=== PATIENT | male | born 1990 | race Caucasian/White ===

== ENCOUNTER 2025-05-04 19:00 | Observation (INO) ==
[2025-05-04 19:59] LABS: Basophils # (Auto) 0.03 K/mcL (0.00-0.30); Basophils % (Auto) 0.5 % (0.0-2.0); Eosinophils # (Auto) 0.05 K/mcL (0.00-0.70); Eosinophils % (Auto) 0.8 % (0.0-7.0); Hematocrit 40.5 % (40.1-51.0); Hemoglobin 13.7 g/dL (13.7-17.5); Lymphocytes # (Auto) 1.81 K/mcL (1.50-4.80); Lymphocytes % (Auto) 27.8 % (15.5-49.0); Mean Corpuscular HGB Conc 33.8 g/dL (31.0-36.0); Monocytes # (Auto) 0.55 K/mcL (0.10-0.90); Monocytes % (Auto) 8.4 % (1.0-12.0); Neutrophils % (Auto) 62.3 % (38.0-78.0); Platelet Count 325 K/mcL (140-440); RBC 4.35 M/mcL (4.63-6.08); WBC 6.5 K/mcL (4.5-11.0)
[2025-05-04 20:11] LABS: ALT/SGPT 27 U/L (<40); AST/SGOT 22 U/L (<40); Albumin 4.5 gm/dL (3.2-5.2); Albumin/Globulin Ratio 2.3 (1.0-2.3); Alkaline Phosphatase 77 U/L (39-117); Anion Gap 11.0 (8.0-16.0); Bilirubin,Total 0.5 mg/dL (0.1-1.0); Blood Urea Nitrogen 15 mg/dL (6-20); Calcium 9.4 mg/dL (8.6-10.4); Carbon Dioxide 21 mmol/L (22-30); Chloride 105 mmol/L (96-108); Globulin 2.0 gm/dL (2.2-3.7); Glucose 89 mg/dL (70-105); Potassium 4.0 mmol/L (3.3-5.1); Sodium 137 mmol/L (133-145)
[2025-05-04 20:16] LABS: INR 1.0 (0.9-1.1); Prothrombin Time 13.8 sec (11.9-14.5)
[2025-05-04 20:26] LABS: Partial Thromboplastin Time 27.0 sec (20.0-37.0)
[2025-05-04 20:50] LABS: Bilirubin,Urine Negative (Negative); Color,Urine Yellow; Glucose,Urine (UA) Negative (Negative); Ketones,Urine Negative (Negative); Leukocyte Esterase,Urine Negative /uL (Negative); PH,Urine 7.0 (5.0-9.0); Protein,Urine Negative (Negative); Specific Gravity,Urine 1.010 (1.000-1.035); Urobilinogen,Urine Normal
[2025-05-04] MEDS: ONDANSETRON 4 MG/2 ML VIAL IV ONE (20:51)
[2025-05-04] MEDS: 0.9 % SODIUM CHLORIDE 1,000 ML IV ONE ×2 (21:42→22:34)
[2025-05-04] MEDS: diphenhydrAMINE 50 MG/ML VIAL IV ONE (21:42)
[2025-05-04] MEDS ORDERED: POTASSIUM CHLORIDE 40 MEQ in DEXTROSE 5% IN WATER 500 ML IV PRN (22:01)
[2025-05-04] MEDS ORDERED: ACETAMINOPHEN 325 MG TABLET PO PRN (22:01)
[2025-05-04] MEDS ORDERED: POTASSIUM CHLORIDE 20 MEQ TABLET PO PRN ×2 (22:01)
[2025-05-04] MEDS ORDERED: METHOCARBAMOL 1,000 MG/10 ML VIAL IV PRN (22:01)
[2025-05-04] MEDS ORDERED: IPRATROPIUM/ALBUTEROL 3 ML AMPUL.NEB NEB PRN (22:01)
[2025-05-04] MEDS ORDERED: SENNOSIDES 1 TABLET PO PRN (22:01)
[2025-05-04] MEDS ORDERED: POLYETHYLENE GLYCOL 3350 17 GM PACKET PO PRN (22:01)
[2025-05-04] MEDS ORDERED: MAGNESIUM SULFATE 2 GM/50 ML BAG IV PRN (22:01)
[2025-05-04] MEDS: METHOCARBAMOL 1,000 MG/10 ML VIAL IV ONE (22:24)
[2025-05-04] MEDS: DEXAMETHASONE 10 MG/ML VIAL IV ONE (22:24)
[2025-05-04] MEDS: ATORVASTATIN 40 MG TABLET PO SCH (22:25)
[2025-05-04] MEDS: ASPIRIN 325 MG ENTERIC COATED TABLET PO ONE ×2 (22:25→22:36)
[2025-05-04] MEDS: ONDANSETRON 4 MG/2 ML VIAL IV PRN (22:33)
[2025-05-04] MEDS: ATORVASTATIN 40 MG TABLET ONE (22:36)
[2025-05-04] MEDS: ONDANSETRON 4 MG/2 ML VIAL ONE (22:36)
[2025-05-04] MEDS: METHOCARBAMOL 1,000 MG/10 ML VIAL ONE (22:36)
[2025-05-04] MEDS: DEXAMETHASONE 10 MG/ML VIAL ONE (22:36)
[2025-05-04] MEDS: DOCUSATE SODIUM 100 MG CAPSULE PO SCH (22:53)
[2025-05-04] MEDS: TOPIRAMATE 100 MG TABLET PO SCH (23:31)
[2025-05-04 23:38] LABS: HDL Cholesterol 61 mg/dL (>40); LDL Cholesterol,Calculated 93 mg/dL (<100); Triglycerides 57 mg/dL (<150)
[2025-05-05] MEDS: HYDROmorphone 0.5 MG/0.5 ML SYRINGE IV PRN ×2 (00:30→14:32)
[2025-05-05] MEDS: METOCLOPRAMIDE 10 MG/2 ML VIAL IV PRN (00:33)
[2025-05-05] MEDS: METOCLOPRAMIDE 10 MG/2 ML VIAL ONE ×2 (01:41→07:40)
[2025-05-05] MEDS: ONDANSETRON 4 MG/2 ML VIAL ONE (04:33)
[2025-05-05 06:19] LABS: ALT/SGPT 25 U/L (<40); AST/SGOT 19 U/L (<40); Albumin 4.3 gm/dL (3.2-5.2); Albumin/Globulin Ratio 2.3 (1.0-2.3); Alkaline Phosphatase 78 U/L (39-117); Anion Gap 10.0 (8.0-16.0); Bilirubin,Direct 0.3 mg/dL (<0.3); Bilirubin,Total 0.7 mg/dL (0.1-1.0); Blood Urea Nitrogen 19 mg/dL (6-20); Calcium 9.1 mg/dL (8.6-10.4); Carbon Dioxide 21 mmol/L (22-30); Chloride 105 mmol/L (96-108); Globulin 1.9 gm/dL (2.2-3.7); Glucose 111 mg/dL (70-105); Phosphorous 3.3 mg/dL (2.5-4.5); Potassium 4.1 mmol/L (3.3-5.1); Sodium 136 mmol/L (133-145); Triglycerides 30 mg/dL (<150); Uric Acid 6.3 mg/dL (2.5-8.0)
[2025-05-05] MEDS ORDERED: NAPROXEN 250 MG TABLET PO PRN (07:35)
[2025-05-05] MEDS: diphenhydrAMINE 50 MG/ML VIAL IV PRN (08:27)
[2025-05-05] MEDS: PANTOPRAZOLE 40 MG TABLET PO SCH (08:37)
[2025-05-05] MEDS: ENOXAPARIN 40 MG/0.4 ML SYRINGE SQ SCH (08:37)
[2025-05-05] MEDS: SERTRALINE 50 MG TABLET PO SCH (08:37)
[2025-05-05] MEDS: ASPIRIN 81 MG TAB.CHEW PO SCH (08:37)
[2025-05-05] MEDS: 0.9 % SODIUM CHLORIDE 500 ML IV ONE (10:19)
[2025-05-05] MEDS: KETOROLAC 30 MG/ML VIAL IV PRN (10:20)
[2025-05-05] MEDS: DIAZEPAM 10 MG/2 ML SYRINGE IV PRN (11:18)
[2025-05-05] MEDS: PROMETHAZINE 25 MG TABLET PO PRN (16:54)
[2025-05-05] MEDS ORDERED: OXYBUTYNIN CHLORIDE 5 MG TAB.XL.24H PO SCH (21:00)
[2025-05-05] MEDS: MONTELUKAST 10 MG TABLET PO SCH (22:34)
[2025-05-05] MEDS: OXYBUTYNIN CHLORIDE 5 MG TAB.XL.24H PO SCH (22:34)
== END 2025-05-05 22:15 | disposition left against medical advice (07) ==
LOC: ICU 19:00 → ED 19:00 → ICU 22:18
PROVIDERS: ADMIT Internal Medicine; ATTEND Internal Medicine